=== PATIENT | male | born 1980 | race Caucasian/White ===

== ENCOUNTER → 2017-01-25 | Outpatient (CLI) | payer BC ==
[~2017-01-25] MED LIST: IBUPROFEN800 MG PO; LORTAB 5/500 TA1 TA1 PO
--- NOTE | ~2017-01-25 | CR63 ---
[facility] A Service of [facility] & [facility] / [facility] RADIOLOGY TEXT RESULTS PATIENT: EVE DEUTSCH LOCATION: [facility] : 78 UNIT #: [id number] AGE: [address]: Bekah Rubin MD SEX: M ORDER DR: [id number] [facility] [address] [place], [place] [address] [id number] O MR#: [id number] Acc #: [id number] NAME: EVE DEUTSCH : 1980 SEX: M STUDY DATE/TIME: 01/25/2017 17:23 UNIT: [facility] ROOM: STUDY DESCRIPTION: CR Chest 2 View Attending Physician: Bekah Rubin M.D. Ordering Physician: Bekah Rubin M.D. Primary Care Physician: Bekah Rubin M.D. MEDICAL IMAGING REPORT This report is preliminary unless electronic signature is present EXAM Chest PA and lateral 3 views 01/25/2017 HISTORY Cough and chest congestion, bronchitis for 2 weeks. Smoking history for 10 years. FINDINGS PA and lateral examination of the chest upright shows a good expansion of the parenchyma with a normal distribution of the pulmonary vascularity. There is no indication of congestion, effusion, infiltrate, tumor, or nodular density. The pleural reflections and diaphragmatic contours are normal. The cardiac silhouette and mediastinal anatomy is within normal limits. IMPRESSION Normal chest. Dictated by... Richard Yusuf M.D. THIS IS AN ELECTRONICALLY VERIFIED REPORT Richard Yusuf M.D. at 01/28/2017 8:26 AM YUDELKA/yun TD: 01/25/2017 22:57 JOB #: [id number] MEDICAL IMAGING REPORT Page 1 of 1 COPY
== END | disposition home or self-care (01) ==
LOC: CRAD 17:11
DX: R05 Cough (principal); R09.89 Other specified symptoms and signs involving the circulatory and respiratory systems
CPT/HCPCS: 71020